=== PATIENT | female | born 1965 | race Caucasian/White ===

== ENCOUNTER 2018-07-31 19:35 | Emergency (ER) | payer OTHER ==
[~2018-07-31] VITALS: Ht 162.6 cm; Wt 86.2 kg
[2018-07-31] MEDS ORDERED: LITHIUM CARBON600 MG (19:44)
[2018-07-31] MEDS ORDERED: LISINOPRIL5 MG (19:44)
[2018-07-31] MEDS ORDERED: CYMBALTA60 MG (19:44)
[2018-07-31] MEDS ORDERED: ADDERALL XR 2020 MG (19:45)
[2018-07-31] MEDS ORDERED: ADDERALL 20 MG20 MG (19:45)
[2018-07-31] MEDS ORDERED: PROTONIX 20 MG20 MG (19:45)
[2018-07-31 19:55] LABS: HEMOGLOBIN 14.4 gm/dL (12.0-15.0); MCH 28.3 pg (26.0-34.0); MCHC 32.8 g/dL (28.0-37.0); MPV 7.1 fl. (7.2-11.1); NUCLEATED RBCS 0 /100WBC; PLATELET COUNT* 352 thou/uL (150-400); RBC 5.11 mil/uL (4.20-5.00); RDW-CV 13.5 % (10.5-14.5); WBC 15.2 thou/uL (4.0-11.0)
[2018-07-31 20:03] LABS: CREATININE 1.2 mg/dL (0.6-1.3)
[2018-07-31 20:07] LABS: URINE BILIRUBIN NEGATIVE (Negative); URINE BLOOD NEGATIVE (Negative); URINE CLARITY CLEAR; URINE COLOR YELLOW; URINE GLUCOSE-RANDOM NEGATIVE (Negative); URINE KETONES NEGATIVE (Negative); URINE LEUKOCYTES-REFLEX TRACE (Negative); URINE NITRITE-REFLEX NEGATIVE (Negative); URINE PROTEIN NEGATIVE (Negative); URINE UROBILINOGEN 0.2 E.U./dl (0.2-1.0)
[2018-07-31 20:08] LABS: ALBUMIN 3.5 g/dL (3.4-5.0); TOTAL BILIRUBIN 0.2 mg/dL (<0.1-1.0); TOTAL PROTEIN 7.2 g/dL (6.4-8.2)
[2018-07-31 20:15] LABS: ABSOLUTE LYMPHOCYTES 2.6 thou/uL (0.8-5.3); ABSOLUTE MONOCYTES 0.6 thou/uL (0.0-1.2); PLATELET ESTIMATE ADEQUATE
[2018-07-31 20:21] LABS: SQUAMOUS 4-10 Moderate /LPF (0-3)
[2018-07-31 20:22] LABS: BACTERIA-REFLEX 1-9 Few /HPF (None Seen); URINE RBC None Seen /HPF (0-2); URINE WBC-REFLEX 6-15 Few /HPF (0-5)
[2018-07-31 21:32] VITALS: BP 117/65
[2018-07-31] MEDS ORDERED: PHENERGAN 25 MG25 M1 PO (21:58)
[2018-07-31] MEDS ORDERED: ACETAMINOPHEN-1 EAC1 PO (21:58)
[2018-07-31] MEDS ORDERED: CIPRO500 M1 PO (21:58)
[2018-07-31] MEDS ORDERED: FLAGYL500 M1 PO (22:02)
== END 2018-07-31 22:18 | disposition home or self-care (01) ==
LOC: M.ERS 19:35
PROVIDERS: Nurse Practitioner Family
DX: K52.9 Noninfective gastroenteritis and colitis, unspecified (principal); N39.0 Urinary tract infection, site not specified; I10 Essential (primary) hypertension; Z88.2 Allergy status to sulfonamides; Z91.040 Latex allergy status

== ENCOUNTER 2018-08-01 15:37 | Emergency (ER) | payer OTHER ==
[~2018-08-01] VITALS: Ht 162.6 cm; Wt 86.2 kg
[~2018-08-01 15:37] MED LIST: ACETAMINOPHEN-1 EAC1 PO; ADDERALL 20 MG20 MG; ADDERALL XR 2020 MG; CIPRO500 M1 PO; CYMBALTA60 MG; FLAGYL500 M1 PO; LISINOPRIL5 MG; LITHIUM CARBON600 MG; PHENERGAN 25 MG25 M1 PO; PROTONIX 20 MG20 MG
[2018-08-01 16:20] LABS: ABSOLUTE BASOPHILS 0.1 thou/uL (0.0-0.2); ABSOLUTE EOSINOPHILS 0.1 thou/uL (0.0-0.7); ABSOLUTE MONOCYTES 0.6 thou/uL (0.0-1.2); ABSOLUTE NEUTROPHILS 9.4 thou/uL (1.6-8.1); BASOPHILS 0.8 %; EOSINOPHILS 0.6 %; HEMATOCRIT 41.1 % (37.0-47.0); HEMOGLOBIN 13.6 gm/dL (12.0-15.0); LYMPHOCYTES 16.4 %; MCH 28.3 pg (26.0-34.0); MCV 85.8 fL (80.0-100.0); MONOCYTES 5.3 %; MPV 7.2 fl. (7.2-11.1); NUCLEATED RBCS 0 /100WBC; PLATELET COUNT* 311 thou/uL (150-400); POLYS 76.9 %; RBC 4.79 mil/uL (4.20-5.00); RDW-CV 13.2 % (10.5-14.5); WBC 12.2 thou/uL (4.0-11.0)
[2018-08-01 16:28] LABS: CALCIUM 9.2 mg/dL (8.5-10.1); POTASSIUM 3.6 mmol/L (3.5-5.1)
[2018-08-01 16:33] LABS: ALBUMIN 3.2 g/dL (3.4-5.0); TOTAL BILIRUBIN 0.3 mg/dL (<0.1-1.0); TOTAL PROTEIN 6.7 g/dL (6.4-8.2)
[2018-08-01 18:04] VITALS: BP 117/77
== END 2018-08-01 18:31 | disposition home or self-care (01) ==
LOC: M.ERS 15:37
PROVIDERS: Physician Assistant
DX: K52.9 Noninfective gastroenteritis and colitis, unspecified (principal); I10 Essential (primary) hypertension; Z88.2 Allergy status to sulfonamides; Z91.040 Latex allergy status

== ENCOUNTER 2018-08-09 08:39 | Emergency (ER) | payer OTHER ==
[~2018-08-09] VITALS: Ht 167.6 cm; Wt 91.6 kg
[2018-08-09 09:08] LABS: ABSOLUTE BASOPHILS 0.1 thou/uL (0.0-0.2); ABSOLUTE EOSINOPHILS 0.2 thou/uL (0.0-0.7); ABSOLUTE LYMPHOCYTES 2.3 thou/uL (0.8-5.3); ABSOLUTE MONOCYTES 0.5 thou/uL (0.0-1.2); ABSOLUTE NEUTROPHILS 4.7 thou/uL (1.6-8.1); BASOPHILS 1.3 %; EOSINOPHILS 2.7 %; HEMATOCRIT 44.6 % (37.0-47.0); HEMOGLOBIN 14.9 gm/dL (12.0-15.0); LYMPHOCYTES 29.8 %; MCH 28.9 pg (26.0-34.0); MCHC 33.3 g/dL (28.0-37.0); MCV 86.7 fL (80.0-100.0); MONOCYTES 6.1 %; MPV 7.4 fl. (7.2-11.1); NUCLEATED RBCS 0 /100WBC; PLATELET COUNT* 338 thou/uL (150-400); POLYS 60.1 %; RBC 5.14 mil/uL (4.20-5.00); RDW-CV 13.4 % (10.5-14.5); WBC 7.8 thou/uL (4.0-11.0)
[2018-08-09 09:12] LABS: URINE CLARITY CLEAR; URINE COLOR YELLOW; URINE SPECIFIC GRAVITY > 1.030 (1.005-1.030)
[2018-08-09 09:13] LABS: URINE BILIRUBIN NEGATIVE (Negative); URINE BLOOD NEGATIVE (Negative); URINE GLUCOSE-RANDOM NEGATIVE (Negative); URINE KETONES NEGATIVE (Negative); URINE LEUKOCYTES-REFLEX NEGATIVE (Negative); URINE NITRITE-REFLEX NEGATIVE (Negative); URINE PROTEIN NEGATIVE (Negative); URINE UROBILINOGEN 0.2 E.U./dl (0.2-1.0)
[2018-08-09 09:15] LABS: ANION GAP 11 mmol/L (7-16); BUN 12 mg/dL (7-18); CHLORIDE 104 mmol/L (98-107); CO2 27 mmol/L (21-32); GLUCOSE 85 mg/dL (70-99); POTASSIUM 3.4 mmol/L (3.5-5.1); SODIUM 142 mmol/L (136-145)
[2018-08-09 09:22] LABS: ALBUMIN 4.4 g/dL (3.4-5.0); ALKALINE PHOSPHATASE 101 U/L (46-116); LIPASE 106 U/L (73-393); SGOT 30 U/L (15-37); SGPT 26 U/L (30-65); TOTAL BILIRUBIN 0.5 mg/dL (<0.1-1.0); TOTAL PROTEIN 7.6 g/dL (6.4-8.2); TROPONIN-I LEVEL <0.06 ng/mL (<0.06)
[2018-08-09 10:34] VITALS: BP 130/71
--- NOTE | 2018-08-09 16:24 | EKG ---
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: LAURA : 1965 Requested By: Justin Us Order Number: [id number] MD: Jose Coelho Measurements Intervals [place] Rate: 81 P: 63 MS: 138 QRS: 70 QRSD: 90 T: 70 QT: 403 QTc: 468 Interpretive Statements Sinus rhythm Borderline low voltage, extremity leads No previous ECG available for comparison Electronically Signed On 08-09-2018 16:24:36 [employer] by Jose Coelho [email or web address] <ELECTRONICALLY SIGNED> By: Jose Coelho MD, [facility] 08/09/18 [id number] Jose Coelho MD, [facility] /EPI
== END 2018-08-09 10:35 | disposition home or self-care (01) ==
LOC: M.ERS 08:39
PROVIDERS: Family Medicine
DX: R10.9 Unspecified abdominal pain (principal); R19.7 Diarrhea, unspecified; I10 Essential (primary) hypertension; Z88.2 Allergy status to sulfonamides; Z91.040 Latex allergy status